=== PATIENT | female | born 2005 | race Caucasian/White ===

== ENCOUNTER 2024-09-29 22:09 | Emergency (ER) | payer BC, OTHER ==
[2024-09-29 23:31] LABS: Absolute Basophils 0.1 K/uL (0-0.5); Absolute Eosinophils 0.2 K/uL (0-0.5); Absolute Lymphocytes (CBC) 3.5 K/uL (0.7-4.9); Absolute Neutrophil 14.1 K/uL (1.8-8.0); Basophils % 0.4 % (0-1.3); Hematocrit 37.3 % (36.0-45.0); Hemoglobin 12.5 g/dL (12.0-15.0); Lymphocytes % 18.5 % (15.3-44.8); MCH 25.1 pg (27.0-35.0); MCHC 33.4 g/dL (32.0-36.0); MCV 75.1 fL (80-100); Monocytes % 5.5 % (3.3-12.3); Neutrophils % 74.6 % (41.7-73.7); Platelets 473 thou/uL (152-406); RBC Red Blood Cell Count 4.97 M/uL (3.86-4.86); Red Cell Distribution Width 14.2 % (12.1-15.2)
[2024-09-29 23:50] LABS: Albumin 3.4 g/dL (3.4-5.0); Albumin/Globulin Ratio 0.8 (1.1-1.8); Anion Gap 5.5 mEq/L (5.0-15.0); Bilirubin Total 0.4 mg/dL (0.2-1.0); Globulin 4.2 g/dL (2.3-3.5); Potassium 3.5 mEq/L (3.5-5.1); Protein, Total 7.6 g/dL (6.4-8.2)
[2024-09-30 00:27] LABS: Specific Gravity 1.026 (1.005-1.030)
[2024-09-30 00:30] LABS: Specific Gravity 1.026 (1.005-1.030); Sqamous Epithelial None Seen /HPF (None Seen); Urine Bacteria None Seen /HPF (<20); Urine Bilirubin NEGATIVE (Negative); Urine Blood Negative (Negative); Urine Clarity Extremely Turbid (Clear); Urine Color Light-Orange (Yellow); Urine Culture Reflex Order NOT NEEDED; Urine Glucose NEGATIVE (Negative); Urine Ketones NEGATIVE (Negative); Urine Microscopic Reflex YN ORDER UMIC; Urine Nitrite NEGATIVE (Negative); Urine Protein NEGATIVE (Negative); Urine RBC None Seen /HPF (None Seen); Urine Urobilinogen Normal (Normal); Urine WBC None Seen /HPF (<5); Urine pH 7.5 (5.0-7.0)
[2024-09-30] MEDS ORDERED: KETOROLAC 30 MG/ML INJ ONE (01:03)
[2024-09-30] MEDS ORDERED: NA CHLORIDE 0.9% 1,000 ML ONE (01:03)
--- NOTE | 2024-09-30 02:34 | EDPHYS ---
Physician Documentation [facility] Name: Caren Jara Age: 18 yrs Sex: Female : 2005 Arrival Date: 09/29/2024 Time: 22:09 Bed 11 Private MD: ED Physician Jefry Castro HPI: 09/30 00:18 This 18 yrs old Female presents to ER via Ambulatory with complaints of Abdominal Pain. sb4 00:18 The patient presents with abdominal pain in the lower abdomen. Onset: The sb4 symptoms/episode began/occurred This evening. The symptoms do not radiate. Associated signs and symptoms: none. The symptoms are described as Pressure. The patient has not experienced similar symptoms in the past. The patient has not recently seen a physician. 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 - Infectious Disease History:: Denies. - Social history:: Smoking status: Patient denies any tobacco usage or history of. ROS: 09/30 00:18 Constitutional: Negative for fever, chills, and weight loss, sb4 Abdomen/GI: Positive for abdominal pain, All other systems are negative, Exam: 00:18 Constitutional: This is a well developed, well nourished patient who is awake, alert, sb4 and in no acute distress. Head/Face: Normocephalic, atraumatic. Eyes: Extra-ocular motions intact. Periorbital areas with no swelling, redness, or edema. ENT: Mucous membranes moist. Cardiovascular: Regular rate and rhythm with a normal S1 and S2. Respiratory: No increased work of breathing, no retractions or nasal flaring. Abdomen/GI: Soft, non-tender, no distension. Skin: Warm, dry with normal turgor. Normal color with no rashes, no lesions, and no evidence of cellulitis. Vital Signs: 09/29 23:05 Weight 72.57 kg; Height 5 ft. 3 in. ; Pain 0/10; vc1 23:09 BP 137 / 76; Pulse 73; Resp 16; Temp 98.2; Pulse Ox 100% ; vc1 09/30 02:57 BP 124 / 79; Pulse 68; Resp 17 S; Pulse Ox 100% on R/A; vc1 09/29 23:05 Body Mass Index 28.34 (72.57 kg, 160.02 cm) vc1 09/29 23:05 Pain Scale: Adult vc1 MDM: 09/29 23:06 Medical Screening Exam initiated sb4 09/30 02:30 Data reviewed: vital signs, nurses notes, lab test result(s), radiologic studies, I sb4 have discussed the patient's presentation/case with the attending Emergency Department Physician;. Counseling: I had a detailed discussion with the patient and/or guardian regarding the historical points, exam findings, and any diagnostic results supporting the discharge/admit diagnosis, the presence of at least one elevated blood pressure reading (>120/80) during this emergency department visit, lab results, radiology results, the need for outpatient follow up, for definitive care, to return to the emergency department if symptoms worsen or persist or if there are any questions or concerns that arise at home. 09/29 23:07 Order name: Urinalysis w/ reflexes; Complete Time: 00:31 vc1 09/29 23:10 Order name: CBC with Diff; Complete Time: 23:36 sb4 09/29 23:10 Order name: CMP; Complete Time: 23:52 sb4 09/29 23:10 Order name: Lipase; Complete Time: 23:52 4 09/29 23:10 Order name: Test, Urine; Complete Time: 00:33 sb4 09/29 23:10 Order name: CT Abd/Pelvis - IV Contrast Only sb4 09/29 23:10 Order name: IV Saline Lock; Complete Time: 23:23 sb4 09/29 23:10 Order name: Labs collected and sent; Complete Time: 23:23 sb4 Administered Medications: 01:29 Drug: NS 0.9% IV 1000 ml IV at 1000 ml once; to be given as a bolus over 60 minutes vc1 Route: IV; Rate: 1000 ml; Site: left antecubital; 02:58 Follow up: Response: No adverse reaction; IV Status: Completed infusion; IV Intake: vc1 1000ml 01:29 Drug: Ketorolac IVP 15 mg IVP once Route: IVP; Site: left antecubital; vc1 02:58 Follow up: Response: No adverse reaction; Marked relief of symptoms vc1 Disposition: 22:55 Co-signature as Attending Physician, Jefry Castro MD I agree with the assessment sp4 and plan of care. I reviewed the patient's care provided by the Advanced Practice Provider and agree with the diagnosis and treatment plan. Disposition Summary: 09/30/24 02:34 Discharge Ordered Notes: Location: Home sb4 Problem: new sb4 Symptoms: have improved sb4 Condition: Stable sb4 Diagnosis - Lower abdominal pain, unspecified sb4 Followup: sb4 - With: Emergency Department - When: As needed - Reason: If symptoms return, Worsening of condition Discharge Instructions: - Discharge Summary Sheet sb4 - Abdominal Pain, Adult, [id number] sb4 Forms: - Patient Portal Instructions sb4 - Leadership Thank You Letter sb4 Signatures: Dispatcher [employer] Adrianne Kent RN RN vc1 Phoebe Rodriguez PA-C SU sb4 Jefry Castro MD MD sp4
--- NOTE | 2024-09-30 02:34 | ER ---
Nurse's Notes [facility] Name: Caren Jara Age: 18 yrs Sex: Female : 2005 Arrival Date: 09/29/2024 Time: 22:09 Bed 11 Private MD: Diagnosis: Lower abdominal pain, unspecified Presentation: 09/29 23:05 Chief complaint: Patient states: bad stomach pain in the lower abdomen, hurts to cough vc1 and when I use the bathroom. Coronavirus screen: Client denies travel out of the [place] in the last 14 days. At this time, the client does not indicate any symptoms associated with coronavirus-19. Ebola Screen: Patient negative for fever greater than or equal to 101.5 degrees Fahrenheit, and additional compatible Ebola Virus Disease symptoms Patient denies exposure to infectious person. Patient denies travel to an Ebola-affected area in the 21 days before illness onset. No symptoms or risks identified at this time. Initial Sepsis Screen: Does the patient meet any 2 criteria? No. Patient's initial sepsis screen is negative. Does the patient have a suspected source of infection? No. Patient's initial sepsis screen is negative. Risk Assessment: Do you want to hurt yourself or someone else? Patient reports no desire to harm self or others. Onset of symptoms was September 29, 2024. 23:05 Method Of Arrival: Ambulatory vc1 23:05 Acuity: MANUEL 3 vc1 Triage Assessment: 23:08 General: Appears in no apparent distress. uncomfortable, Behavior is calm, cooperative, vc1 appropriate for age. Pain: Complains of pain in suprapubic area, right inguinal area and left inguinal area Pain does not radiate. Pain currently is 0 out of 10 on a pain scale. at worst was 7 out of 10 on a pain scale. Quality of pain is described as sharp. EENT: No deficits noted. No signs and/or symptoms were reported regarding the EENT system. Neuro: Level of Consciousness is awake, alert, obeys commands, Oriented to person, place, time, situation, Appropriate for age. Cardiovascular: Capillary refill < 3 seconds Patient's skin is warm and dry. Respiratory: Airway is patent Respiratory effort is even, unlabored, Respiratory pattern is regular, symmetrical, Breath sounds are clear bilaterally. GI: Abdomen is round non-distended. :. Derm: Skin is intact, is healthy with good turgor, Skin is dry, Skin is normal, Skin temperature is warm. Musculoskeletal: Circulation, motion, and sensation intact. Range of motion: intact in all extremities. 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 - Infectious Disease History:: Denies. - Social history:: Smoking status: Patient denies any tobacco usage or history of. Screenin:07 [facility] ED Fall Risk Assessment (Adult) History of falling in the last 3 months, vc1 including since admission No falls in past 3 months (0 pts) Confusion or Disorientation No (0 pts) Intoxicated or Sedated No (0 pts) Impaired Gait No (0 pts) Mobility Assist Device Used No (0 pt) Altered Elimination No (0 pt) Score/Fall Risk Level 0 - 2 = Low Risk Oriented to surroundings, Maintained a safe environment, Educated pt \T\ family on fall prevention, incl call for assistance when getting out of bed, Provided non-skid footwear, Used ambulatory aids as needed (educated on \T\ assisted with). Abuse screen: Denies threats or abuse. Nutritional screening: No deficits noted. Tuberculosis screening: No symptoms or risk factors identified. Assessment: 23:05 General: see triage assessment. vc1 09/30 02:57 Reassessment: Patient appears in no apparent distress at this time. No changes from vc1 previously documented assessment. Patient and/or family updated on plan of care and expected duration. Pain level reassessed. Patient is alert, oriented x 3, equal unlabored respirations, skin warm/dry/pink. Patient states feeling better. Patient states symptoms have improved. Vital Signs: 09/29 23:05 Weight 72.57 kg; Height 5 ft. 3 in. ; Pain 0/10; vc1 23:09 BP 137 / 76; Pulse 73; Resp 16; Temp 98.2; Pulse Ox 100% ; vc1 09/30 02:57 BP 124 / 79; Pulse 68; Resp 17 S; Pulse Ox 100% on R/A; vc1 09/29 23:05 Body Mass Index 28.34 (72.57 kg, 160.02 cm) vc1 09/29 23:05 Pain Scale: Adult vc1 ED Course: 09/29 22:13 Patient arrived in ED. mr 23:06 Triage completed. vc1 23:06 Phoebe Rodriguez [facility]. sb4 23:06 Jefry Castro MD is Attending Physician. sb4 23:07 Arm band placed on right wrist. vc1 23:07 Patient has correct armband on for positive identification. Provided Education on: wait vc1 time. 23:22 Inserted saline lock: 22 gauge in left antecubital area, using aseptic technique. Blood vc1 collected. Flushed with 10 mL NS. 23:23 CBC with Diff Sent. vk 23:23 CMP Sent. vk 23:23 Lipase Sent. vk 23:29 Test, Urine Sent. vc1 23:29 Urinalysis w/ reflexes Sent. vc1 09/30 00:40 CT Abd/Pelvis - IV Contrast Only In Process Unspecified. EDMS 01:28 Adrianne Daley, RN is Primary Nurse. vc1 02:57 No provider procedures requiring assistance completed. IV discontinued, intact, vc1 bleeding controlled, No redness/swelling at site. Pressure dressing applied. Administered Medications: 01:29 Drug: NS 0.9% IV 1000 ml IV at 1000 ml once; to be given as a bolus over 60 minutes vc1 Route: IV; Rate: 1000 ml; Site: left antecubital; 02:58 Follow up: Response: No adverse reaction; IV Status: Completed infusion; IV Intake: vc1 1000ml 01:29 Drug: Ketorolac IVP 15 mg IVP once Route: IVP; Site: left antecubital; vc1 02:58 Follow up: Response: No adverse reaction; Marked relief of symptoms vc1 Medication: 09/29 23:07 VIS not applicable for this client. vc1 Intake: 09/30 02:58 IV: 1000ml; Total: 1000ml. vc1 Outcome: 02:34 Discharge ordered by . sb4 02:57 Discharged to home ambulatory, with significant other, vc1 02:57 Condition: stable 02:57 Discharge instructions given to patient, Instructed on discharge instructions, follow up and referral plans. medication usage, Demonstrated understanding of instructions, follow-up care, medications, 02:58 Patient left the ED. vc1 Signatures: Dispatcher [employer] Ирина Shields Reg Reg mr Calcote, Vanessa, RN RN vc1 Phoebe Rodriguez, SU PAYani sb4 Quiana Landa
--- NOTE | 2024-09-30 03:15 | RAD REPORT ---
PROCEDURE: CT Abdomen and Pelvis With Intravenous Contrast CLINICAL INDICATION: The patient is 18 years old and is Female; ABD PAIN TECHNIQUE: Axial computed tomography images of the abdomen and pelvis with intravenous contrast. Sagittal and coronal reformatted images were created and reviewed. This CT exam was performed using one or more of the following dose reduction techniques: automated exposure control, adjustment of the mA a nd/or kV according to patient size, and/or use of iterative reconstruction technique. DLP: 844 mGy*cm COMPARISON: None. FINDINGS: LUNG BASES: Unremarkable. No mass. No consolidation. ABDOMEN: LIVER: Unremarkable. No mass. GALLBLADDER AND BILE DUCTS: Unremarkable. No calcified stones. No ductal dilation. PANCREAS: Unremarkable. No mass. No ductal dilation. SPLEEN: Unremarkable. No splenomegaly. ADRENALS: Unremarkable. No mass. KIDNEYS AND URETERS: Unremarkable. No solid mass. No hydronephrosis. STOMACH AND BOWEL: Unremarkable. No obstruction. No mucosal thickening. PELVIS: APPENDIX: No findings to suggest acute appendicitis. BLADDER: Unremarkable. No mass. REPRODUCTIVE: Unremarkable as visualized. ABDOMEN and PELVIS: INTRAPERITONEAL SPACE: Unremarkable. No free air. No significant fluid collection. BONES/JOINTS: No acute fracture. No dislocation. SOFT TISSUES: Unremarkable. VASCULATURE: Unremarkable. No abdominal aortic aneurysm. LYMPH NODES: Unremarkable. No enlarged lymph nodes. IMPRESSION: No acute abdominal or pelvic abnormality. Electronically signed by: Nader Claire DO 09/30/2024 01:54 AM CDT 9 Due to temporary technical issues with the PACS/[employer] reporting system, reports are being nevin d by the in-house radiologist without review as a courtesy to ensure prompt reporting the interpreting radiologist is fully responsible for the content of the report. Transcribed Date/Time: 09/30/2024 3:14 AM
[2024-09-30 11:30] VITALS: TEMP 98.2; O2SAT 100
[2024-09-30 11:31] VITALS: BP 124/79
== END 2024-09-30 02:58 | disposition home or self-care (01) ==
LOC: ER 22:09
DX: R10.30 Lower abdominal pain, unspecified (principal)
CPT/HCPCS: 85025; 81001; 36415; 81025; 83690; 80053; 74177; Q9967; J7030